=== PATIENT | female | born 1960 | race Caucasian/White ===

== ENCOUNTER 2019-02-17 10:33 | Emergency (ER) | payer SELFPAY ==
[2019-02-17] MEDS ORDERED: ONDANSETRON 4 MG TAB.RAPDIS PO ONE (10:42)
[2019-02-17 10:44] VITALS: BP 164/116
--- NOTE | 2019-02-17 10:46 | ER Document Report ---
ED Medical Screen (RME) - General Chief Complaint: Fall Injury Stated Complaint: FALL/HEAD PAIN Time Seen by Provider: 02/17/19 10:42 Notes: Patient is a 58-year-old female presents to the emergency department after a fall. She [place] in [place] the [place] and fell and hit her head. After that she ended up having pressure behind her eyes. Patient is not on blood thinners, but the patient has high blood pressure. She has not taken her blood pressure medication this morning. Exam: Tenderness to right side of eye and right mandible area. I have greeted and performed a rapid initial assessment of this patient. A comprehensive ED assessment and evaluation of the patient, analysis of test results and completion of medical decision making process will be conducted by an additional ED providers. Physical Exam - Vital signs Vitals: Temp Pulse Resp BP Pulse Ox 98.3 F 84 20 164/116 H 100 02/17/19 10:42 02/17/19 10:42 02/17/19 10:42 02/17/19 10:42 02/17/19 10:42 Course - Vital Signs Vital signs: Temp Pulse Resp BP Pulse Ox 98.3 F 84 20 164/116 H 100 02/17/19 10:42 02/17/19 10:42 02/17/19 10:42 02/17/19 10:42 02/17/19 10:42
--- NOTE | 2019-02-17 11:27 | RADIOLOGY REPORT (SQ) ---
EXAM DESCRIPTION: CT HEAD WITHOUT COMPLETED DATE/TIME: 02/17/2019 11:07 am REASON FOR STUDY: fall; pressure behind eyes COMPARISON: None. TECHNIQUE: Axial images acquired through the brain without intravenous contrast. Images reviewed wi th bone, brain and subdural windows. Additional sagittal and coronal reconstructions were generated. Images stored on PACS. All CT scanners at this facility use dose modulation, iterative reconstruction, and/or weight based d osing when appropriate to reduce radiation dose to as low as reasonably achievable (ALARA). [facility]: Dose Right [facility]: CareDose [facility]: Dose Right [facility]: Teradose 4D [facility]: Smart [employer] RADIATION DOSE: CT Rad equipment meets quality standard of care and radiation dose reduction techniq ues were employed. CTDIvol: 53.2 mGy. DLP: 964 mGy-cm. mGy. LIMITATIONS: None. FINDINGS: VENTRICLES: Normal size and contour. CEREBRUM: No masses. No hemorrhage. No midline shift. No evidence for acute infarction. Normal gra y/white matter differentiation. No areas of low density in the white matter. CEREBELLUM: No masses. No hemorrhage. No alteration of density. No evidence for acute infarction. EXTRAAXIAL SPACES: No fluid collections. No masses. ORBITS AND GLOBE: No intra- or extraconal masses. Normal contour of globe without masses. CALVARIUM: No fracture. PARANASAL SINUSES: No fluid or mucosal thickening. SOFT TISSUES: No mass or hematoma. OTHER: Chronic appearing bilateral mastoid sclerosis. IMPRESSION: NO ACUTE INTRACRANIAL IMAGING FINDINGS. EVIDENCE OF ACUTE STROKE: NO. COMMENT: Quality ID # [id number]: Final reports with documentation of one or more dose reduction techniques (e.g., Automated exposure control, adjustment of the mA and/or kV according to patient size, use of iterative reconstruction technique) TECHNICAL DOCUMENTATION: JOB ID: [id number] [employer]- All Rights Reserved Reading location - IP/workstation name: [email or web address]
--- NOTE | 2019-02-17 11:29 | RADIOLOGY REPORT (SQ) ---
EXAM DESCRIPTION: CT FACIAL AREA WITHOUT COMPLETED DATE/TIME: 02/17/2019 11:07 am REASON FOR STUDY: fall COMPARISON: None. TECHNIQUE: Noncontrasted images through the facial bones and orbits windowed for bone and soft tissu e. Additional coronal and sagittal reconstructed images reviewed. All images stored on PACS. All CT scanners at this facility use dose modulation, iterative reconstruction, and/or weight based d osing when appropriate to reduce radiation dose to as low as reasonably achievable (ALARA). [facility]: Dose Right [facility]: CareDose [facility]: Dose Right [facility]: Teradose 4D [facility]: [employer] RADIATION DOSE: CT Rad equipment meets quality standard of care and radiation dose reduction techniq ues were employed. CTDIvol: 30.4 mGy. DLP: 612 mGy-cm. mGy. LIMITATIONS: None. FINDINGS: FACIAL BONES: No fracture or bone lesion. ORBITS: Intact. No fracture. Symmetric intact globes and retroorbital soft tissues. PARANASAL SINUSES: Clear. No significant mucosal thickening, mass or fluid. No nasal polyps. Maxill dipesh sinus outlets are patent. SOFT TISSUES: No significant hematoma. No drainable fluid collections or foreign bodies. INFERIOR BRAIN: Limited view. No acute findings. OTHER: No other significant finding. IMPRESSION: No evidence of facial fracture. Orbits intact. TECHNICAL DOCUMENTATION: JOB ID: [id number] Quality ID # [id number]: Final reports with documentation of one or more dose reduction techniques (e.g., Au tomated exposure control, adjustment of the mA and/or kV according to patient size, use of iterative reconstruction technique) 2010 [employer]- All Rights Reserved Reading location - IP/workstation name: [email or web address]
[2019-02-17] MEDS ORDERED: ACETAMINOPHEN 325 MG TABLET PO ONE (11:32)
[2019-02-17] MEDS ORDERED: MORPHINE SULFATE 10 MG/ML INJ IM ONE (12:47)
[2019-02-17] MEDS ORDERED: ASPIRIN 81 MG TABLET, CHEWABLE PO ONE (13:21)
[2019-02-17 14:18] LABS: ABSOLUTE EOSINOPHILS # (AUTO) 0.1 10^3/uL (0.0-0.6); ABSOLUTE MONOCYTES (AUTO) 0.4 10^3/uL (0.1-1.4); TOTAL CELLS COUNTED % (AUTO) 100 %
[2019-02-17 14:19] LABS: INTERNATIONAL RATION (INR) 0.88; PROTHROMBIN TIME 11.9 SEC (11.4-15.4)
[2019-02-17 14:21] LABS: ALBUMIN 4.2 g/dL (3.5-5.0); ALKALINE PHOSPHATASE 141 U/L (38-126); ANION GAP 13 (5-19); ASPARTATE AMINO TRANSFERASE 20 U/L (14-36); BILIRUBIN,DIRECT 0.2 mg/dL (0.0-0.4); BILIRUBIN,TOTAL 0.5 mg/dL (0.2-1.3); BLOOD UREA NITROGEN 15 mg/dL (7-20); CALCIUM 9.6 mg/dL (8.4-10.2); CARBON DIOXIDE 26 mmol/L (22-30); CHLORIDE 102 mmol/L (98-107); GLUCOSE 113 mg/dL (75-110); TOTAL PROTEIN 7.4 g/dL (6.3-8.2)
[2019-02-17 14:23] LABS: ABSOLUTE LYMPHOCYTES (AUTO) 1.6 10^3/uL (0.5-4.7); BASOPHILS % (AUTO) 0.8 % (0-2); EOSINOPHILS % (AUTO) 1.1 % (0-6); HEMATOCRIT 40.1 % (36.0-47.0); HEMOGLOBIN 13.7 g/dL (12.0-15.5); LYMPHOCYTES % (AUTO) 25.4 % (13-45); MEAN CORPUSCULAR HEMOGLOBIN 30.3 pg (27.0-33.4); MEAN CORPUSCULAR HGB CONC 34.2 g/dL (32.0-36.0); MEAN CORPUSCULAR VOLUME 89 fl (80-97); MONOCYTES % (AUTO) 6.8 % (3-13); PLATELET COUNT 253 10^3/uL (150-450); RED BLOOD COUNT 4.53 10^6/uL (3.72-5.28); RED CELL DISTRIBUTION WIDTH 14.9 % (11.5-14.0); SEGMENTED NEUTROPHILS % (AUTO) 65.9 % (42-78); WHITE BLOOD COUNT 6.1 10^3/uL (4.0-10.5)
--- NOTE | 2019-02-17 14:49 | EKG REPORT ---
SEVERITY:- ABNORMAL ECG - SINUS RHYTHM RIGHT BUNDLE BRANCH BLOCK : Confirmed by: Beka Connelly MD 17-Feb-2019 14:48:20
--- NOTE | 2019-02-17 15:40 | ER Document Report ---
ED General - General Chief Complaint: Closed Head Injury Stated Complaint: FALL/HEAD PAIN Time Seen by Provider: 02/17/19 10:42 - Related Data Allergies/Adverse Reactions: Iodinated Contrast Media Allergy (Verified 02/17/19 11:39) Penicillins Allergy (Verified 02/17/19 11:39) Past Medical History - Social History Smoking Status: Never Smoker Frequency of alcohol use: None Drug Abuse: None Family History: Reviewed & Not Pertinent Patient has suicidal ideation: No Patient has homicidal ideation: No Physical Exam - Vital signs Vitals: Temp Pulse Resp BP Pulse Ox 98.3 F 84 20 164/116 H 100 02/17/19 10:42 02/17/19 10:42 02/17/19 10:42 02/17/19 10:42 02/17/19 10:42 Patient presents emerged department status post fall about 1 hour prior to arrival. says she was walking along and tripped and fell forward hitting her head and landing on her chest and abdomen no preceding chest pain or dizziness. No loss of consciousness. He was able to help her up and get into the car was able to stand on her own. This is seen in triage alert and oriented and was sent to CT. On returning from CT she developed some a fascia and right-sided weakness. She is complaining of a frontal headache. Chest pain abdominal pain neck pain bilateral knee pain she denies any abnormal vision chest pain or shortness of breath some nausea but no vomiting numbness or weakness on the left side. Past medical history significant for hypertension and Parkinson's disease. Social history she does not smoke and drink at all. Her immunizations are u p-to-date. fm History is noncontributory. Review of systems pertinent positives and negatives in HPI otherwise all the systems were reviewed and acutely negative. PHYSICIAN EXAM -vital signs are noted triage note and note from triage reviewed GENERAL: Well-appearing, well-nourished and in moderate distress HEAD: Large contusion over the frontal area with tenderness in the area but no crepitus normocephalic EYES: Pupils equal round and reactive to light, extraocular movements intact, sclera anicteric, however clear. There is no entrapment ENT: nares patent, oropharynx clear without exudates. Moist mucous membranes. She is some ecchymosis on the right infraorbital region. There is no step-off NECK: supple without lymphadenopathy she is exquisitely tender in the midline of the neck and because there is a cervical collar was applied LUNGS: Breath sounds clear to auscultation bilaterally and equal. No wheezes rales or rhonchi. Got significant tenderness over the left anterior and left lateral chest but no crepitus HEART: Regular rate and rhythm without murmurs ABDOMEN: Soft, there is a midline incision. She got moderate tenderness across her upper abdomen she says is new I do not appreciate enlarged liver or spleen. He when distracted she still has significant pain the lower abdomen is nontender EXTREMITIES: The left upper extremity shoulder elbow and wrist are nontender. Left lower extremity the hip is nontender good range of motion. She is got some minimal tenderness over the anterior patella. There is no effusion she has full range of motion of the knee and no laxity. The ankle is nontender with good sensation in the foot the right lower extremity she is has good range of motion of the hip. She has a mild tenderness over the patella full range of motion of the knee no laxity there is no effusion. The ankle is nontender with good pulses and sensation right upper extremity the she is tenderness over the AC joint and shoulder. There is no obvious deformity decreased range of motion to the pain. The elbow is nontender. There is a tenderness over the distal wrist that increases with extension. There is a superficial abrasion over the distal wrist, pelvis is stable for range of motion of both hips NEUROLOGICAL: She is alert and oriented x4 she can answer questions but is able to write but does have some difficulty holding her pen. Her motor strength is 5/5 in the left lower extremity with a mild resting tremor on the left which he says is chronic from her Parkinson's. She does have. She has 3/5 strength in both the right upper and lower extremity. He has a positive ulnar drift PSYCH: Normal mood, normal affect. SKIN: Warm, Dry, normal turgor, no rashes or lesions noted. BACK-she has a mild tenderness with sitting. She has some tenderness across her upper back Differential includes delayed intracranial hemorrhage CVA cervical spine fracture Course - Re-evaluation Re-evalutation: 02/17/19 15:40 ED patient remained stable she was placed in cervical collar IV was started he was given 4 baby aspirin. Medical decision making presents status post fall initially alert and oriented x4 now with a aphasia and right-sided weakness. To the nurse and midlevel in triage and patient was verbal on arrival. At this time my biggest concern is that she has a CVA somewhat unclear as to why she has delayed symptoms. I think is unlikely that she had a bleed with a negative CT just a few minutes prior to this. The possibility is a C-spine fracture or carotid dissection which I think would be less likely total patient better allergies and she says she stopped breathing with IVP dye. I lengthy discussion with patient and family. The risks and perceived benefits of TPA were discussed. In light of the head trauma and chest and abdominal trauma. I feel that the risk of TPA with markedly with any potential benefits me is in agreement with this. I did talk to him about transfer to a higher level of care where she can be evaluated by the trauma service and have MRA and be evaluated by neurology I did consult the stroke hotline in [place]. Was referred to the transfer center and then to the emergency department and neurology. This case was discussed with both of them. There are some discussion about the best approach for this patient decided patient will be sent to the ED and evaluated by the ED and consult trauma and neurology upon arrival This time patient is stable she will be sent by air ambulance to [facility] which is a higher level of care - Vital Signs Vital signs: Temp Pulse Resp BP Pulse Ox 98.3 F 84 20 164/116 H 100 02/17/19 11:40 02/17/19 11:40 02/17/19 11:40 02/17/19 11:40 02/17/19 11:40 - Laboratory Result Diagrams: 02/17/19 13:30 02/17/19 13:30 Laboratory results interpreted by me: 02/17/19 02/17/19 13:30 13:30 RDW 14.9 H Glucose 113 H Alkaline Phosphatase 141 H - Diagnostic Test Radiology reviewed: Reports reviewed - EKG Interpretation by Me Additional EKG results interpreted by me: 02/17/19 15:43 EGD shows a normal sinus rhythm with right bundle branch block and some minimal nonspecific ST wave changes Critical Care Note - Critical Care Note Total time excluding time spent on procedures (mins): 35 Discharge - Discharge Clinical Impression: CVA (cerebral vascular accident) Head injury Qualifiers: Encounter type: initial encounter Qualified Code(s): S09.90XA - Unspecified injury of head, initial encounter Blunt chest trauma Qualifiers: Encounter type: initial encounter Qualified Code(s): S29.8XXA - Other specified injuries of thorax, initial encounter Blunt abdominal trauma Qualifiers: Encounter type: initial encounter Qualified Code(s): S39.91XA - Unspecified injury of abdomen, initial encounter Condition: Stable Disposition: [facility]
== END 2019-02-17 13:48 | disposition short-term general hospital (02) ==
LOC: ER 10:33
DX: I63.9 Cerebral infarction, unspecified (principal); R47.01 Aphasia; G81.91 Hemiplegia, unspecified affecting right dominant side; I10 Essential (primary) hypertension; S00.83XA Contusion of other part of head, initial encounter; S60.819A Abrasion of unspecified wrist, initial encounter; S39.91XA Unspecified injury of abdomen, initial encounter; S29.9XXA Unspecified injury of thorax, initial encounter; W19.XXXA Unspecified fall, initial encounter; R51 Headache; R11.0 Nausea; I45.10 Unspecified right bundle-branch block; G20 Parkinson's disease; Z91.041 Radiographic dye allergy status; Z88.0 Allergy status to penicillin
CPT/HCPCS: 93005; 36415; 82962; 85025; 85610; 80053; 70450; 70486; 93010; L0120; S0119; 99291